=== PATIENT | male | born 1925 | race Caucasian/White ===

== ENCOUNTER → 2016-05-11 | Outpatient (CLI) | payer MEDICARE ==
[~2016-05-11] MED LIST: AC325T PO; ACET650S13 PO; ASPI-587 PO; BCTR15O EXT; BRIM5DRO12 OD; CALC500T24 PO; CARB15DR75 OU; CITA20TA12 PO; FAMO-119 PO; FURO20TA4 PO; HYDR12.570 PO; IBUP400T22 PO; IRON150C8 PO; LEVO175T2 PO; LISI10TA2 PO; MIRT15TA8 PO; MTP25TSR PO; MULT-974 PO; NF-DOR2% OD; OXYB10TA PO; POTA10CA43 PO; SIMV20TA PO; TRAM-21 PO
== END ==
LOC: LABNPT 14:43
PROVIDERS: ATTEND Family Medicine
DX: R05 Cough (principal); J02.9 Acute pharyngitis, unspecified
CPT/HCPCS: 87804

== ENCOUNTER → 2017-06-18 | Outpatient (CLI) | payer MEDICARE | LOC: WOUNDCARE 14:28 | PROVIDERS: ATTEND Nurse Practitioner | DX: L89.322 Pressure ulcer of left buttock, stage 2 (principal); L22 Diaper dermatitis; R54 Age-related physical debility; R32 Unspecified urinary incontinence | CPT/HCPCS: 99213 ==